=== PATIENT | female | born 1935 | race Caucasian/White ===

== ENCOUNTER 2019-12-27 05:04 | Inpatient (IN) ==
--- NOTE | 2019-12-27 05:07 | PROVIDER DOCUMENTATION ---
HPI-Chest Pain - General Chief Complaint: Shortness of Breath Stated Complaint: Allergic reaction Time Seen by Provider: 12/27/19 05:04 Source: patient Allergies/Adverse Reactions: Patient Allergies Allergy/AdvReac Type Severity Reaction Status Date / Time codeine [Codeine] Allergy Severe VOMITING Verified 12/27/19 05:01 streptomycin [Streptomycin] AdvReac Intermediate "puts me Verified 12/27/19 05:01 out" Home Medications: Home Medication List Medication Instructions Recorded Confirmed Last Taken Type Quetiapine Fumarate [Seroquel] 50 mg PO QHS 12/27/19 12/27/19 Unknown History - History of Present Illness-CP Nature of Presenting Problem: lives alone 84yo felt chest discomfort and sob on seroquel,has hbp no cardiac dz Location: reports: substernal Chest Pain Radiation: reports: no radiation Quality of Pain: reports: pressure Severity in ED: moderate Onset/Duration: this morning Timing: gone now Context/Activities at Onset: reports: sleep Modifying Factors: worse with: lying down Associated Symptoms: reports: shortness of breath. denies: fever/chills, nausea, syncope, vomiting Nitro Today/Relief: no nitro taken today Aspirin Treatment Today: no aspirin today Prior Chest Pain/Cardiac Workup: reports: no prior chest pain Similar Symptoms Previously?: No Recently Seen Here or By Another Healthcare Provider: No Review of Systems - Adult - REVIEW OF SYSTEMS - ADULT Constitutional: reports: no symptoms reported. denies: chills, fever Eyes: reports: no symptoms reported Ears, Nose, Mouth & Throat: reports: no symptoms reported Cardiovascular: reports: chest pain Respiratory: reports: shortness of breath. denies: hemoptysis, pleurisy Gastrointestinal: reports: no symptoms reported. denies: abdominal pain, diarrhea, nausea, vomiting Genitourinary: reports: no symptoms reported Musculoskeletal: reports: no symptoms reported Integumentary: reports: no symptoms reported Neurological: reports: no symptoms reported Psychiatric: reports: no symptoms reported Endocrine: reports: no symptoms reported Hematologic/Lymphatic: reports: no symptoms reported Allergic/Immunologic: reports: no symptoms reported Past History - Adult - PAST MEDICAL HISTORY-ADULT Review of Records: reports: Nursing Assessment Review, Medications Reviewed, Social history reviewed & non-contributory. Major Childhood Illnesses: reports: denies history Cardiovascular: reports: denies history, HTN Respiratory: reports: denies history Gastrointestinal: reports: GERD, IBS Obstetrical/Gynecological: reports: denies history Genitourinary: reports: denies history Musculoskeletal: reports: denies history Neurological: reports: denies history Endocrine/Immune: reports: denies history Other Conditions: reports: denies history - PRIOR SURGERIES/PROCEDURES Surgical/Procedure History: reports: reviewed, not pertinent - IMMUNIZATION STATUS Childhood Immunizations: See Nurse Assessment Flu Vaccine: See Nurse Assessment - FAMILY HISTORY Family History: reviewed, not pertinent Physical Exam-General - PHYSICAL EXAM-ADULT Initial Vital Signs Reviewed: Yes - CONSTITUTIONAL General Appearance: appears well, alert, no apparent distress - EYES Eyes: PERRL/EOMI, pink conjunctivae - HEAD, EARS, NOSE, MOUTH & THROAT HENMT: normocephalic/atraumatic, moist mucous membranes, normal ENT inspection - NECK Neck: non-tender, full range of motion, supple - RESPIRATORY Respiratory: chest non-tender, lungs clear, normal breath sounds, no pleuratic chest pain, no respiratory distress - CARDIOVASCULAR Cardiovascular: normal peripheral pulses, regular rate, rhythm, no edema - GASTROINTESTINAL (ABDOMEN) Abdominal Exam: normal bowel sounds, non tender, soft - LYMPHATIC Lymphatic: no adenopathy - MUSCULOSKELETAL Back Exam: normal inspection Extremity: normal range of motion, non-tender Peripheral Pulses: dorsalis-pedis (R): 1+, dorsalis-pedis (L): 1+ - SKIN Integumentary: normal color, normal turgor - NEUROLOGIC Neurologic: grossly normal - PSYCHIATRIC Psych/Mental Status: oriented x 3 Progress - PLAN OF CARE/RESULTS Progress/Plan/Lab Results: Orders Category Date Time Status Admit - [facility] Routine AdmDCTranf 12/27/19 15:18 Active Activity - Up Ad Susan ORDERED Care 12/27/19 13:26 Active DVT/PE Risk Assess/Protocol [QM] ORDERED Care 12/27/19 13:20 Completed Intake and Output-Strict ORDERED Care 12/27/19 13:20 Active Vital Signs Order Q 4-HR ASSESS Care 12/27/19 13:23 Active Z-Document. for Tele Applied ORDERED Care 12/27/19 13:31 Completed Heart Healthy Diet Diet 12/27/19 13:27 Active CHEST-2 VIEWS [RAD] Stat Exams 12/27/19 05:[address] ANGIOGRM PULMONARY ARTERIES [CT] Routine Exams 12/29/19 06:00 Ordered CTA [CT ANGIOGRM PULMONARY ARTERIES] [CT] Stat Exams 12/27/19 07:35 Completed BASIC METABOLIC PANEL [CHEM] Routine Lab 12/28/19 05:09 Completed BNP [PRO B-NATRIURETIC PEPTIDE] Stat Lab 12/27/19 05:00 Completed CBC WITH DIFF [HEME] Stat Lab 12/27/19 05:00 Completed CBC WITH NO DIFF [HEME] Routine Lab 12/28/19 05:09 Completed CK PROFILE [SP CHEM] Stat Lab 12/27/19 05:00 Completed COMPREHENSIVE METABOLIC PANEL [CHEM] Stat Lab 12/27/19 05:00 Completed D-DIMER [COAG] Stat Lab 12/27/19 05:00 Completed MAGNESIUM [CHEM] Stat Lab 12/27/19 05:00 Completed TROPONIN T HIGH SENSITIVITY Stat Lab 12/27/19 05:00 Completed TSH Stat Lab 12/27/19 05:00 Completed Acetaminophen [Tylenol] Med 12/27/19 13:26 Active 650 mg PO Q6H PRN PRN Carvedilol [Coreg] Med 12/27/19 21:00 Active 3.125 mg PO BID Carvedilol [Coreg] Med 12/27/19 13:32 Discontinued 3.125 mg PO NOW ONE Enoxaparin [Lovenox] Med 12/27/19 14:00 Discontinued 40 mg SUBQ Q24H Hydralazine [Apresoline] Med 12/27/19 13:32 Active 10 mg IV Q6H PRN PRN Labetalol Med 12/27/19 11:49 Discontinued 100 mg .ROUTE .STK-MED ONE Labetalol Med 12/27/19 11:19 Discontinued 5 mg IV NOW ONE Omeprazole [Prilosec] Med 12/27/19 21:00 Discontinued 40 mg PO BID Ondansetron [Zofran] Med 12/27/19 13:26 Active 4 mg IV Q4H PRN PRN Potassium Chloride E.r. [Klor-Con] Med 12/27/19 13:37 Discontinued 20 meq PO NOW ONE Quetiapine [Seroquel] Med 12/27/19 21:00 Active 50 mg PO QHS Oxygen Device Routine Oth 12/27/19 13:26 Completed Telemetry [OM.EQ] Routine Oth 12/27/19 13:20 Active EKG [EKG] Routine Ther 12/27/19 05:07 Draft Echo Spec/Color Doppler Routine Ther 12/27/19 13:26 Completed Transfer/Admit Order [TRANSFER] Routine Transfer 12/27/19 13:33 Completed Result Diagrams: 12/28/19 05:09 12/28/19 05:09 - EKG 1 Time of EKG reading by physician:: 05:12 EKG Read and Signed by:: Anastacio Camara EKG Interpretation (*Must complete 3 of following elements*): Abnormal Rate: 82 Rhythm: sinus [place]: normal QRS: LVH NE Interval: normal ST Wave: non-specific ST changes - CONSULTS/PCP/HOSPITALIST Notification #1 *Consult/PCP/Hospitalist*: I spoke with cardiovascular surgeon, Dr Benjamin at [facility] Time Discussed: 10:47 Consult Disposition: other (Dr Benjamin who stated the ulcerative plaque should not cause shortness of breath, and the only one who can do the procedure for that plaque was the surgeon at [facility]) #2 Consult: Dr Torres, CV surgeon at [facility] Time Discussed: 11:15 Consult Disposition: other (Dr Torres stated it was incidental findings, [facility] don't have bed to accept patient, she stated patient can be admitted for dyspnea and hypertension and repeat CT in 48h,) #3 Consult: Dr Cardoso Time Discussed: 11:23 Consult Disposition: Will see in ED (Dr Cardoso will see that patient and not sure what he can do for the patient) Departure - Departure Date of Disposition Decision: 12/27/19 Time of Disposition Decision: 16:21 DIAGNOSIS: Dyspnea Qualifiers: Dyspnea type: unspecified Qualified Code(s): R06.00 - Dyspnea, unspecified Hypertension Qualifiers: Hypertension type: unspecified Qualified Code(s): I10 - Essential (primary) hypertension Disposition: ADMITTED INPATIENT 09 Certified Medical Emergency: Emergent Condition: Good - Critical Care Note This patient required my direct & personal management of CC.: No Attestation - Physician/ ALYSE Attestation Patient care was provided by Advanced Practice Provider:: No The physician spent face to face time with patient:: Yes Advanced Practice Provider documentation review:: Supervising physician onsite and consulted in the evaluation and care of this patient. The physician did have a face to face encounter with the patient.
[2019-12-27 05:22] LABS: BASO# 0.03 X1000 (0.0-0.2); BASO% 0.4 % (0.0-0.8); EOS# 0.03 X1000 (0.0-0.7); EOS% 0.4 % (0.0-10.0); IMM GRAN# 0.01 X1000 (0.0-0.04); IMM GRAN% 0.1 % (0.0-0.5); RDW 12.8 % (11.5-14.5); WBC 8.47 X1000 (4.8-10.8)
[2019-12-27 05:37] LABS: ALBUMIN 4.8 g/dL (3.5-5.0); CALCIUM 10.4 mg/dL (8.8-10.2); POTASSIUM 3.3 mmol/L (3.5-5.1); TOTAL BILIRUBIN 0.9 mg/dL (0.20-1.00); TOTAL PROTEIN 7.4 g/dL (6.3-8.3)
[2019-12-27 05:42] LABS: HEMATOCRIT 45.9 % (37.0-47.0); HEMOGLOBIN 15.7 g/dL (12.0-16.0); LYMPH# 1.25 X1000 (1.2-3.4); LYMPH% 14.8 % (20.5-51.1); MCH 28.4 PG (27-31); MCHC 34.2 g/dL (33-37); MCV 83.2 FL (81-99); MONO# 0.45 X1000 (0.11-0.59); MONO% 5.3 % (1.7-9.3); MPV 10.4 FL (7.4-10.4); PLT 246 X1000 (130-400); RBC 5.52 XMIL (4.2-5.4)
--- NOTE | 2019-12-27 06:39 | EKG Report ---
Test Performed on : 12/27/2019 05:07:22 AM Test Reason : emboli Blood Pressure : / mmHG Vent. Rate : 082 BPM Atrial Rate : 082 BPM P-R Int : 106 ms QRS Dur : 088 ms QT Int : 380 ms P-R-T Axes : 042 017 145 degrees QTc Int : 443 ms Sinus rhythm. with short [place] Left atrial enlargement Left ventricular hypertrophy with repolarization abnormality Abnormal ECG When compared with ECG of 26-JUN-2013 11:09, Non-specific change in ST segment in Anterior leads Nonspecific T wave abnormality now evident in Inferior leads T wave inversion now evident in Anterolateral leads Unconfirmed Result
--- NOTE | 2019-12-27 07:33 | Diag Imaging Result Doc PS360 ---
EXAM: CHEST-2 VIEWS - 12/27/2019 HISTORY: cough TECHNIQUE: Chest two views COMPARISON: 11/02/2019 FINDINGS: Heart size is normal. There is mild tortuosity of the thoracic aorta. There is a small hiatal hernia. The lungs appear clear. There is no pleural effusion or pneumothorax identified. There are thoracic spondylosis and old lower thoracic wedge deformity noted. IMPRESSION: No evidence of acute disease. Electronically signed by Glen Preston 12/27/2019 7:31 AM
--- NOTE | 2019-12-27 08:51 | Diag Imaging Result Doc PS360 ---
EXAM: CT ANGIOGRAM PULMONARY ARTERIES - 12/27/2019 HISTORY: elevated ddimer/sob TECHNIQUE: CT angiogram pulmonary arteries with intravenous contrast. Axial, coronal, and 3-D MIP images are obtained. COMPARISON: 03/15/2015 FINDINGS: There are no filling defects identified pulmonary arteries. There is apparent ulcerated plaque at the anterior medial aspect of the mid descending aorta which may compatible with penetrating aortic ulcer. There are atheromatous changes with substantial stenosis of the proximal left subclavian artery similar to prior. There is some hazy dependent atelectasis. There is no consolidation, pulmonary edema, pleural effusion, or pneumothorax identified. There is a medium size hiatal hernia. IMPRESSION: No evidence of pulmonary embolism. Apparent penetrating aortic ulcer at anterior medial margin of mid descending aorta. 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 No evidence of pneumonia. No pneumothorax. Hiatal hernia. Electronically signed by Glen Preston 12/27/2019 8:49 AM
[2019-12-27] MEDS ORDERED: LABETALOL IV ONE (11:19)
[2019-12-27] MEDS ORDERED: LABETALOL ONE (11:49)
[2019-12-27] MEDS ORDERED: ZOFRAN IV PRN (13:26)
[2019-12-27] MEDS ORDERED: COREG PO ONE (13:32)
[2019-12-27] MEDS ORDERED: APRESOLINE IV PRN (13:32)
[2019-12-27] MEDS ORDERED: KLOR-CON PO ONE (13:37)
[2019-12-27] MEDS ORDERED: LOVENOX SUBQ SCH (14:00)
--- NOTE | 2019-12-27 14:43 | HISTORY AND PHYSICAL ---
PRIMARY CARE PHYSICIAN: JESSICA Leary. CHIEF COMPLAINT: Chest pain. HISTORY OF PRESENT ILLNESS: Ms. Sales is an 84-year-old, female with past medical history of hypertension, insomnia, GERD, irritable bowel syndrome, and colon polyps. The patient does present to the ER today with complaints of chest pain and dyspnea. The patient also does complain of some nausea and weakness, headache, and generalized feeling of achiness all over. The patient stated this started this morning. ER findings do show a positive D- dimer of 1.46, potassium of 3.3, proBNP of 1317. CT angiogram does show an apparent penetrating aortic ulcer at the anterior medial margin of the mild descending aorta. ER physician did contact Dr. Benjamin at [facility]. Dr. Benjamin recommended him calling [facility]. ER physician did call the CV surgeon at [facility], Dr. Torres. Dr. Torres stated that this was an incidental finding, and he recommended to treat the patient for dyspnea and hypertension, and repeat the CT in 48 hours. The patient does deny any fever, chills, or flu-like symptoms, cough, congestion, neck pain, stiffness, excessive thirst, orthopnea, PND, vomiting, melena, hematemesis, diarrhea, constipation, dysuria, hematuria, muscle pain, syncope, vertigo, or any other pertinent symptoms at this time. REVIEW OF SYSTEMS: A 10-point review of systems has been obtained, and all are negative, except what is stated above in the HPI. PAST MEDICAL HISTORY: 1. Hypertension. 2. Insomnia. 3. GERD. 4. IBS. 5. Colon polyps. PAST SURGICAL HISTORY: Multiple flexible sigmoidoscopies done by Dr. Hammond, and also colonoscopies done by Dr. Hammond with colon polyp removals. FAMILY HISTORY: Noncontributory. SOCIAL HISTORY: The patient does live alone. She denies any smoking, alcohol, or illicit drug usage. ALLERGIES: Streptomycin and codeine. HOME MEDICATIONS: Seroquel 25 mg p.o. at bedtime. PHYSICAL EXAMINATION: VITAL SIGNS: Temperature 97.9 degrees, pulse rate 118, respiratory rate 20, blood pressure 147/87, O2 saturation 100% on room air. GENERAL: This is an 84-year-old, female. She is well nourished and well developed. She is in no acute distress. HEENT: Atraumatic, normocephalic. Pupils are equal, round, reactive to light. Mucous membranes are dry. NECK: Supple. No lymphadenopathy. Trachea is midline. There is no JVD. CARDIOVASCULAR: Regular rate and rhythm. No murmurs, gallops, or rubs appreciated. RESPIRATORY: Lung sounds are clear with equal chest excursion. Respirations are nonlabored. No accessory muscle usage. GI: Abdomen is soft, nontender, nondistended. Bowel sounds are present x4. : There is no suprapubic tenderness noted. The patient is voiding without difficulty. NEUROLOGIC: The patient is awake, alert, and oriented. She is able to follow all commands. She is very hard of hearing. MUSCULOSKELETAL: Full distal strength noted. No abnormalities. No deformities. EXTREMITIES: No clubbing, no cyanosis, no edema. DP and PT pulses are present and palpable. SKIN: Warm, dry, and intact. There are multiple varicosities to the bilateral lower extremities. No rashes, bruises, or diaphoresis noted. LABORATORY AND DIAGNOSTIC DATA: White blood cell count 8.47, hemoglobin 15.7, hematocrit 45.9, platelet count 246,000. D-dimer 1.46. Sodium 139, potassium 3.3, chloride 96, BUN is 12, creatinine 1.0, glucose 149. Magnesium 2.1. Troponin T 20. Creatine kinase 127. ProBNP is 1317. TSH is 5.37. Chest x-ray does show no evidence of acute disease. CT/PE does show an apparent penetrating aortic ulcer at the anterior and medial margin of the mild descending aorta, chronic stenosis at the proximal left subclavian artery. No evidence of pulmonary embolism. ASSESSMENT: 1. Penetrating aortic ulcer. 2. Hypertension. 3. Hypokalemia. 4. Gastroesophageal reflux disease. 5. Irritable bowel syndrome. PLAN: We will admit this patient to the medical floor. We will place this patient on awake overnight monitor and supplemental O2 as needed. We will do an echocardiogram. We will repeat the CT/PE in 48 hours as recommended by the B CV surgeon. We will treat the patient's blood pressure also as recommended by the CV surgeon. We will start the patient on Coreg 3.125 mg p.o. b.i.d. She was given labetalol 5 mg IV in the ER. We will provide this patient with hydralazine 10 mg IV every 6 hours p.r.n. Will provide this patient with Tylenol 650 mg p.o. every 6 hours prn for her headache. We will give this patient Prilosec 40 mg p.o. b.i.d. Will give this patient Zofran 4 mg IV every 4 hours p.r.n. for nausea. I will start this patient on Lovenox 40 mg subcutaneously every 24 hours for DVT prophylaxis. I will start her on a healthy heart diet. I will supplement her potassium with potassium chloride 20 mEq p.o. now. I will repeat labs in the morning. All other further treatment pending hospital course and laboratory data. Dictated by JESSICA Jacobs for David Cardoso MD cc: MD Isac Ramos CRNP MTDD
[2019-12-27] MEDS: TYLENOL PO PRN (15:32)
[2019-12-27] MEDS ORDERED: PRILOSEC PO SCH (21:00)
[2019-12-27] MEDS: SEROQUEL PO SCH (21:37)
[2019-12-27] MEDS: COREG PO SCH (21:37)
--- NOTE | 2019-12-27 21:52 | HISTORY AND PHYSICAL ---
ADDENDUM: Patient seen and examined by myself. Full note dictated and discussed with nurse practitioner. Patient presented to the hospital with atypical chest pain. CT demonstrated a possible aortic ulcer. The ER has talked to CV surgeons at [facility], as well as [facility], both of which agree that there is effectively nothing to do, and that this should be not a problem. Her blood pressures were elevated. They both want her to be watched over night and evaluate her blood pressures in the a.m. Therefore we are going to admit her to the hospital and will follow. Currently, she is awake, alert, oriented. She is in no distress. Her chest pain has resolved. cc: David Cardoso MD
[2019-12-28 05:59] LABS: HEMATOCRIT 40.7 % (37.0-47.0); HEMOGLOBIN 13.7 g/dL (12.0-16.0); MCH 28.6 PG (27-31); MCHC 33.7 g/dL (33-37); MPV 10.2 FL (7.4-10.4); RBC 4.79 XMIL (4.2-5.4); RDW 13.1 % (11.5-14.5)
[2019-12-28 06:13] LABS: CALCIUM 9.8 mg/dL (8.8-10.2); CREATININE 1.6 mg/dL (0.5-0.9); POTASSIUM 3.9 mmol/L (3.5-5.1)
[2019-12-28] MEDS: PRILOSEC PO SCH ×2 (06:19→20:48)
[2019-12-28 06:28] LABS: URINE SOURCE CLEAN CATCH
[2019-12-28 06:33] LABS: BILIRUBIN URINE NEGATIVE (NEGATIVE); BLOOD URINE NEGATIVE (NEGATIVE); CLARITY CLEAR (CLEAR); COLOR YELLOW; GLUCOSE URINE NEGATIVE (NEGATIVE); KETONE URINE TRACE mg/dL (NEGATIVE); PH URINE 6.5; SP GRAVITY URINE 1.015; URINE BACTERIA 1+ /HFP; URINE EPITHELIAL CELLS >10 /HPF (<10)
[2019-12-28 06:34] LABS: LEUKOCYTES URINE SMALL (NEGATIVE); NITRITE URINE NEGATIVE (NEGATIVE); PROTEIN URINE 100 mg/dL (NEGATIVE); UROBILINOGEN URINE 0.2 EU/dL (0.2-1.0)
[2019-12-28] MEDS: COREG PO SCH ×2 (08:43→20:48)
--- NOTE | 2019-12-28 08:54 | ECHO REPORT ---
ORDER DATE: 12/27/2019 INDICATION: Aortic ulcer. FINDINGS: 1. Right atrium appears normal in size. 2. Mild tricuspid regurgitation. RV systolic pressure of 29. 3. Normal RV systolic function. 4. No significant pulmonic insufficiency. 5. Normal left atrial size with a volume index of 28. 6. No mitral valve prolapse. Trace mitral regurgitation. No mitral stenosis. Mitral annular calcification is noted. 7. Normal LV size, end-diastolic dimension of around 3 cm. The mid left ventricular interventricular septal wall thickness is 0.9 with a basilar septum thickness of 1.4 cm. 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 In addition, there is some evidence for systolic anterior motion of the mitral leaflets, but this does not seem to result in any significant LV outflow tract obstruction. Normal LV systolic function with an estimated EF of 70%. LV outflow tract obstruction was not assessed on Valsalva. 8. Aortic valve does have restriction of motion likely consistent with mild aortic stenosis. Peak gradient across the valve is 29 with a mean of 18. There is mild aortic insufficiency. 9. Aorta is difficult to visualize. It appears normal in caliber. There may be some plaque visualized on suprasternal images but these are poor in quality. 10. No pericardial effusion seen. 11. Indeterminate diastolic function. cc: Bhargav Gray MD
[2019-12-28] MEDS ORDERED: NORVASC PO SCH (09:00)
[2019-12-28] MEDS: TYLENOL PO PRN (13:40)
[2019-12-28] MEDS ORDERED: LOVENOX SUBQ SCH (16:00)
[2019-12-28] MEDS: SEROQUEL PO SCH (20:48)
--- NOTE | 2019-12-28 22:22 | PROGRESS NOTE ---
DATE: 12/28/2019 SUBJECTIVE: Patient notes that she is starting to feel a bit better. Cough is improved. Chest pain appears to have resolved. PHYSICAL EXAMINATION: Temp 97.9, pulse 98, respiratory rate 18, BP 158/65.General: Patient is a pleasant, elderly female who is currently in no distress. HEENT: Normocephalic. Neck: Supple. Cardiovascular: Regular rate. Chest: Clear. Abdomen: Soft. Extremities: Moves all extremities. ASSESSMENT: 1. Hypertension. 2. Questionable penetrating aortic ulcer. 3. Hypokalemia. 4. Reflux. PLAN: We will continue Coreg 3.125 as well as Norvasc 2.5. We will adjust as needed. Potassium is improved. Creatinine has actually bounced a little bit today at 1.6. Unclear as to the etiology. We are going to recheck and treat accordingly. cc: David Cardoso MD
[2019-12-29] MEDS: PRILOSEC PO SCH ×2 (06:44→20:30)
[2019-12-29 09:31] LABS: ALBUMIN 3.8 g/dL (3.5-5.0); CALCIUM 9.6 mg/dL (8.8-10.2); CREATININE 1.1 mg/dL (0.5-0.9); POTASSIUM 3.7 mmol/L (3.5-5.1); TOTAL BILIRUBIN 0.5 mg/dL (0.20-1.00); TOTAL PROTEIN 6.2 g/dL (6.3-8.3)
[2019-12-29] MEDS: COREG PO SCH ×2 (09:54→20:31)
[2019-12-29] MEDS: NORVASC PO SCH (09:54)
--- NOTE | 2019-12-29 13:24 | Diag Imaging Result Doc PS360 ---
EXAM: CT ANGIOGRM PULMONARY ARTERIES HISTORY: evaluate aorta ulcer TECHNIQUE: CT chest with intravenous contrast. Pulmonary arterial protocol with MIP images. COMPARISON: 12/27/2019 FINDINGS: Normal opacification of the pulmonary arteries and their major branches. The appearance of the ulcerated plaque and the remainder of the aorta is unchanged from the recent exam. No pleural effusions. No cardiomegaly. No enlarged lymph nodes. No infiltrates. No bronchiectasis. There is a hiatal hernia which is unchanged. No change in the lower thoracic compression fracture. IMPRESSION: No interval change. This exam was performed using automated exposure control, adjustment of mA or kV according to patient size, and/or use of iterative reconstruction technique. Electronically signed by Ash Cruz 12/29/2019 1:21 PM
[2019-12-29] MEDS: LOVENOX SUBQ SCH (15:29)
[2019-12-29] MEDS: SEROQUEL PO SCH (20:30)
--- NOTE | 2019-12-30 01:39 | PROGRESS NOTE ---
DATE: 12/29/2019 SUBJECTIVE: Patient notes she is still having some chest pain, shortness of breath. Denies any fevers. PHYSICAL EXAMINATION: Vital Signs: Reviewed. Temperature 98 degrees, pulse 57, respiratory 14, BP 166/42. General: Patient is pleasant. No current respiratory distress. HEENT: Normocephalic. Neck: Supple. Cardiovascular: Regular rate. Chest: Decreased but equal. No crackles. No wheezing. Abdomen: Soft. Extremities: Moves all extremities. ASSESSMENT: 1. Chest pain with abnormal CT demonstrating questionable ulcer. 2. Hypertension. 3. Hyperkalemia. 4. Chronic reflux. 5. Irritable bowel syndrome. PLAN: Her creatinine has actually bumped up to 1.6. We are going to continue fluids. Continue to replace her potassium. Follow her blood pressures. We will increase her Norvasc. If her blood pressures remain stable and her kidney function is better, then we will hopefully be able to discharge home tomorrow cc: David Cardoso MD MTDD
[2019-12-30 05:49] LABS: HEMATOCRIT 39.1 % (37.0-47.0); HEMOGLOBIN 12.7 g/dL (12.0-16.0); MCH 28.2 PG (27-31); MCHC 32.5 g/dL (33-37); MCV 86.7 FL (81-99); MPV 10.6 FL (7.4-10.4); RBC 4.51 XMIL (4.2-5.4); RDW 12.9 % (11.5-14.5); WBC 4.21 X1000 (4.8-10.8)
[2019-12-30] MEDS: PRILOSEC PO SCH ×2 (07:49→21:20)
--- NOTE | 2019-12-30 10:23 | PROGRESS NOTE ---
DATE: 12/30/2019 SUBJECTIVE: The patient notes she is still having some abdominal pain. Notes that her chest pain is completely resolved at this point. States that it hurts frequently when she eats. States she feels pain that starts on the left side that radiates all the way through to the right side. Denies any vomiting, dysuria, frequency. Denies constipation, melena, hematochezia. PHYSICAL EXAMINATION: Vital Signs: Reviewed. Temp 98 degrees, pulse 61 to 68, respiratory rate 16, BP 155/42 to 120/57. General: The patient is a frail, elderly female, who is in no current respiratory distress, lying in bed. HEENT: Normocephalic. Neck: Supple. Cardiovascular: Regular rate. Chest: Clear, nonlabored. Abdomen: Soft diffusely, but very minimally tender. Extremities: Moves all extremities. Neurologic: No changes. LABORATORY DATA: CBC normal. CMP pending. ASSESSMENT: 1. Abdominal pain of undetermined origin. We are going to check an ultrasound. 2. Chest pain, resolved. 3. Acute renal failure, resolved. 4. Hypertension. We have added Coreg 3.125 twice daily, Norvasc 5 mg daily. We are not going to continue to increase her blood pressure control, for one given her age, her frail state, and the fact that she frequently has blood pressures in the 120s systolic. 5. Penetrating aortic ulcer, stable. 6. Hypokalemia, resolved. 7. Irritable bowel syndrome, which is likely causing her abdominal pain. PLAN: We are going to continue her in the hospital today. Follow her blood pressures. Check an ultrasound of her abdomen. Further orders as needed. cc: David Cardoso MD
[2019-12-30] MEDS: COREG PO SCH ×2 (10:33→21:13)
[2019-12-30] MEDS: NORVASC PO SCH (10:33)
[2019-12-30] MEDS ORDERED: LACTULOSE PO ONE (11:46)
[2019-12-30] MEDS: CARAFATE PO SCH ×2 (13:19→16:30)
--- NOTE | 2019-12-30 14:18 | Diag Imaging Result Doc PS360 ---
EXAM: US ABDOMEN-COMPLETE - 12/30/2019 HISTORY: diffuse pain TECHNIQUE: Ultrasound abdomen COMPARISON: 11/04/2010 FINDINGS: There are no abnormalities of the liver or spleen identified. There is no ascites seen. The gallbladder is partially contracted. There is no discrete gallbladder abnormality identified otherwise. There are no discrete gallstones identified. The common bile duct is normal caliber at 3 mm. Visualized portions of the pancreas are unremarkable. There is a 2.5 x 2.6 x 1.3 cm cyst at the lower right kidney. The bilateral kidneys show no other abnormalities. Visualized portions of abdominal aorta and IVC appear normal caliber. IMPRESSION: Partially contracted gallbladder. No evidence of gallstones. Normal caliber common bile duct at 3 mm. 2.5 x 2.6 x 1.3 cm right renal cyst. Electronically signed by Glen Preston 12/30/2019 2:16 PM
[2019-12-30] MEDS: LOVENOX SUBQ SCH (16:30)
[2019-12-30] MEDS: SEROQUEL PO SCH (21:20)
[2019-12-30] MEDS: TYLENOL PO PRN (21:21)
[2019-12-30] MEDS: NEURONTIN PO SCH (23:29)
[2019-12-31] MEDS: PRILOSEC PO SCH ×3 (06:34→23:48)
[2019-12-31] MEDS: CARAFATE PO SCH ×3 (08:00→15:45)
[2019-12-31] MEDS: NORVASC PO SCH (12:09)
[2019-12-31] MEDS: COREG PO SCH ×2 (12:10→23:48)
[2019-12-31] MEDS: NEURONTIN PO SCH ×4 (12:10→23:48)
[2019-12-31] MEDS: LOVENOX SUBQ SCH (15:45)
--- NOTE | 2019-12-31 17:36 | PROGRESS NOTE ---
DATE: 12/31/2019 SUBJECTIVE: Patient reports still having some abdominal pain located in the right upper quadrant. Chest pain has completely resolved. Pain gets worse when she eats. She is feeling nauseated, but she is not vomiting. She is having loose stool but no diarrhea. OBJECTIVE: Vital Signs: Temperature 98.0 degrees, heart rate 67, respiratory 18, blood pressure 177/43, O2 saturation 95% on room air. General: This is a chronically ill appearing, 84-year-old female lying in bed, in no acute distress. Cardiovascular: S1, S2 heard. No murmurs, gallops, or rubs. Regular rate and rhythm. Respiratory: Clear bilaterally to auscultation. No work of breathing or using accessory muscles. Abdomen: Soft, diffusely tender to palpation but no signs of peritoneal irritation. Bowel sounds present. No organomegaly. Extremities: No clubbing, cyanosis, or edema. Peripheral pulses present in both legs. Neurological: Patient is alert and oriented x3. Moves 4 extremities. LABORATORY DATA: There are no labs from today but from yesterday were pretty much normal. ASSESSMENT AND PLAN: 1. Abdominal pain of undetermined origin. Abdominal ultrasound showed contracted gallbladder, although no evidence for gallstones and normal caliber common bile duct and apparently no signs of cholecystitis. Considering that finding of contracted gallbladder, prefer to do a HIDA scan, and if patient persists with this condition and considering that she has been here in the hospital for 4 days, we may need to transfer this patient to [facility] for further evaluation by GI. We will see what that HIDA scan shows tomorrow, and we will go from there. Patient is going to be n.p.o. since midnight. 2. Chest pain, completely resolved. 3. Acute renal failure, resolved. 4. Hypertension. The patient has been started on Coreg 3.125 mg p.o. daily plus Norvasc 5 mg p.o. daily. I definitely agree to not continue to increase blood pressure medications because her blood pressure can very between 120s and 170s, and considering is probably arteriosclerosis, we will continue with the same management. 5. Penetrating aortic ulcer, stable. 6. Hypokalemia. That condition has resolved from yesterday. 7. Irritable bowel syndrome. Most likely reason why this patient has abdominal pain, although we have to still do the HIDA scan in order to rule out any gallbladder pathology. PLAN: At this point, we will do a HIDA scan tomorrow, and we will go from there. cc: Mikey Pichardo MD [facility]ENTER[facility]una
[2019-12-31] MEDS: SEROQUEL PO SCH ×2 (19:49→23:48)
[2020-01-01] MEDS: PRILOSEC PO SCH ×2 (06:03→10:42)
[2020-01-01] MEDS: CARAFATE PO SCH ×3 (10:36→16:53)
[2020-01-01] MEDS: NORVASC PO SCH (10:42)
[2020-01-01] MEDS: COREG PO SCH (10:42)
[2020-01-01] MEDS: NEURONTIN PO SCH ×2 (10:42→16:54)
[2020-01-01 11:22] VITALS: BP 169/33
--- NOTE | 2020-01-01 11:56 | Diag Imaging Result Doc PS360 ---
EXAM: HIDA SCAN W/ EJECTION FRACTION - 01/01/2020 HISTORY: abdominal pain, abnormal abdominal US TECHNIQUE: HIDA scan with ejection fraction. Exam performed using 5.1 mCi technetium 99m Choletec administered intravenously. COMPARISON: Exam is correlated with the 12/30/2019 ultrasound abdomen FINDINGS: There is prompt uptake and excretion by the liver. The gallbladder overlies the common bile/hepatic duct in the AP projection, but appears to be prominently visualized. The gallbladder ejection fraction is calculated following administration of by mouth liquid ensure. The ejection fraction is calculated at 76%. IMPRESSION: Prompt visualization of gallbladder. Normal gallbladder ejection fraction at 76%. Electronically signed by Glen Preston 01/01/2020 11:54 AM
[2020-01-01] MEDS: LOVENOX SUBQ SCH (16:54)
--- NOTE | 2020-01-02 09:34 | DISCHARGE SUMMARY ---
ADMISSION DATE: 12/27/2019 DISCHARGE DATE: 12/31/2019 ADDENDUM: Patient seen and examined by myself. Full note dictated and discussed with nurse practitioner. Patient presented to the hospital with nausea, vomiting, and abdominal pain. Thankfully, she ruled out for an [place]. Her CT was normal. She had a HIDA scan also that was normal. Expect her abdominal pain is due to her IBS. Her blood pressures were elevated. She was started on Coreg 3.125 twice daily and Norvasc. However, her blood pressures were sporadic from 120s to 170s. Therefore, I certainly do not feel as though given her age, we should lower blood pressures any. She will follow up outpatient with treatment facility of choice. cc: David Cardoso MD
--- NOTE | 2020-01-02 22:23 | DISCHARGE SUMMARY ---
ADMISSION DATE: 12/27/2019 DISCHARGE DATE: 01/01/2020 DIAGNOSES: 1. Abdominal pain of undetermined origin. 2. Chest pain, resolved. 3. Acute renal failure, resolved. 4. Hypertension. 5. Hypokalemia. 6. Penetrating aortic ulcer. 7. Hypokalemia, resolved. 8. Irritable bowel syndrome which is likely the cause of her abdominal pain. DIAGNOSTICS: 1. Chest x-ray, no evidence of acute disease. Heart size is normal. There is a small hiatal hernia. Lungs are clear. No pleural effusion or pneumothorax number. 2. 12/27/2019 pulmonary arteriogram revealed no evidence of pulmonary embolism. Apparent penetrating aortic ulcer at the anterior medial margin of the mid descending aorta. 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 No evidence of pneumonia, pneumothorax or hiatal hernia. 3. Echocardiogram revealed normal LV systolic function with an estimated EF of 70%. LV outflow tract obstruction was not assessed on Valsalva. The aortic valve has restriction of motion likely consistent with mild aortic stenosis. No pericardial effusion, in determined diastolic function. 4. 12/29/2019. Repeat CTA pulmonary arteries revealed no interval change. The appearance of the ulcerated plaque and remainder of the aorta are unchanged compared to 12/27/2019. 5. Abdominal ultrasound revealed partially contracted gallbladder. No evidence of gallstones. Normal caliber duct at 3 mm. 6. HIDA scan revealed prompt visualization of the gallbladder. Normal gallbladder ejection fraction at 76%. MICROBIOLOGY: Urine culture revealed no growth. HOSPITAL COURSE: Ms. Sales presented to the emergency room complaining of chest pain and dyspnea that started prior to coming to the emergency room. She was found to have elevated D- dimer. CTA pulmonary was negative for pulmonary embolus. It all revealed an apparent penetrating aortic ulcer at the anterior medial margin of the mid descending aorta. The ER physician contacted Dr. Benjamin at [facility]. He recommended [facility] to be called. The ER physician called Dr. Harvey, CT surgeon at [facility]. According to the chart, Dr. Krishnamurthy stated this is an incidental finding and he recommended that the patient be treated for dyspnea and hypertension, repeat the scan in 48 hours, which has been done. She was found to be hypokalemic with a potassium of 3.3. After supplementation, it stayed at 3.7 and 3.9. She was on no antihypertensives. Coreg 3.125 b.i.d. and Norvasc 5 mg were started. Her blood pressures were sporadic from the 120s to 170s. Given her age, we did not increase her medications any further. She developed abdominal pain on December 29. Ultrasound as stated above. HIDA scan was normal. During the hospitalization she ate 75% to 100% of all meals served. Creatinine patricia to 1.6. Thankfully, this has resolved and creatinine is 1 on discharge. PHYSICAL EXAMINATION: Discharge Vital Signs: Blood pressure is 169/33 with a heart rate of 74, respirations 18, temperature 97.7 degrees with room air saturations 98% to 99%. Cardiovascular: Regular rate and rhythm. S1 and S2 appreciated. No murmurs. Pulmonary: Breath sounds are clear with no increased work of breathing noted. Chest rises and falls symmetric with respiration. Gastrointestinal: Abdomen is soft with bowel sounds in all 4 quadrants. Extremities: No clubbing, cyanosis, or edema. She denies calf tenderness bilaterally. Peripheral pulses palpable x4 extremities. Neurologic: She is alert oriented x3. DISCHARGE MEDICATIONS: 1. Carafate 1 g p.o. t.i.d. 2. Seroquel 50 mg p.o. at bedtime. 3. Prilosec 40 mg p.o. b.i.d. 4. Coreg 3.125 mg p.o. b.i.d. 5. Norvasc 5 mg p.o. daily. FOLLOW-UP: 1. JESSICA Leary - needs to call in the morning to schedule appointment in the next 1 to 2 weeks sooner if needed. 2. They have been instructed to call to be seen sooner or return to the emergency room for any syncope, dizziness, chest pain, palpitations, temperature greater than 101, any nausea, vomiting, diarrhea, constipation, black or bloody vomitus or stools, any hematuria, dysuria, frequency, urgency or for any questions or concerns they may have. 3. She is being discharged home in stable condition with family members. 4. She will be followed by [facility]. TIME SPENT: This is a greater than 30 minute discharge. Dictated by JESSICA Lake for David Cardoso MD cc: JESSICA Lake MD Derrick Randolph, [employer]
== END 2020-01-01 17:55 | disposition home health service (06) | DRG 392 ==
LOC: P.ED 05:04 → P.MEDSURG 16:09 → SUATTDRO 16:09
PROVIDERS: ATTEND Family Medicine